=== PATIENT | female | born 1990 | race Caucasian/White ===

== ENCOUNTER 2019-08-25 09:05 | Day surgery (SDC) | payer BC ==
--- NOTE | 2019-08-25 09:25 | EDM.PDOC ---
ED HPI GENERAL MEDICAL PROBLEM - General Chief Complaint: Abdominal Pain Stated Complaint: [facility] Time Seen by Provider: 08/25/19 09:12 Source of Information: Reports: Patient, Family (spouse) History Limitations: Reports: No Limitations - History of Present Illness INITIAL COMMENTS - FREE TEXT/NARRATIVE: 29-year-old female presents to the ED with acute onset of severe right lower quadrant abdominal pain that radiates across her lower abdomen to the left side intermittently. No pain in her back. Patient states that she was watching a basketball game last evening when she started to develop right lower quadrant abdominal pain. Within 10 to 15 minutes the pain became very intense and she was leaning over the toilet at home. She states is almost like something broke inside. Of note the patient is trying to conceive. She is 2 para 0 with 2 previous miscarriages. This. Came approximately a week to 6 8 days early. She started to spot per vagina last evening and continues to spot this morning. Pain was very intense until about midnight and then seemed to ease up until the reoccurred this morning while she was at work. Pain is so intense that she cannot walk. Once again denies pain in her back. Has had no previous abdominal surgeries. Never required a D&C for any of her miscarriages. Onset: Sudden Onset Date: 08/24/19 Onset Time: 20:30 Duration: Hour(s):, Getting Worse Location: Reports: Abdomen (Right lower quadrant of the abdomen rating across to the left side) Quality: Reports: Sharp, Stabbing, Other Severity: Severe (Pain is very sharp and stabbing and colicky at times 9 out of 10) Improves with: Reports: Other (It is improved with fentanyl 50 mcg given IV by paramedics as well as Dilaudid 0.5 mg given by paramedics in route to [place] from [place].) Worsens with: Reports: Movement Context: Denies: Activity, Exercise, Lifting, Sick Contact, Trauma, Other Associated Symptoms: Reports: Loss of Appetite, Nausea/Vomiting (She was sick last evening due to the intensity of the pain). 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, Other (see below) Other Treatments GLOST KILN OPERATOR: fentanyl, dilaudid Lower Abdomen Pain Score (Numeric/FACES): 4 - Related Data Allergies Allergy/AdvReac Type Severity Reaction Status Date / Time No Known Allergies Allergy Verified 08/25/19 09:12 Home Meds: Home Meds Amoxicillin [Amoxil] 875 mg PO Q12HR 08/25/19 [History] Levothyroxine 75 mcg PO ACBREAKFAST 08/25/19 [History] 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: Reports: 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, Spontaneous : 2 Para: 0 (Both previous pregnancies ended in spontaneous miscarriages without need for D&C) Endocrine/Metabolic History: Reports: Hypothyroidism - Past Surgical History HEENT Surgical History: Reports: Oral Surgery Social & Family History - Tobacco Use Smoking Status *Q: Never Smoker - Caffeine Use Caffeine Use: Reports: None - Recreational Drug Use Recreational Drug Use: No - Living Situation & Occupation Living situation: Reports: Occupation: Unemployed ED ROS GENERAL - Review of Systems Review Of Systems: See Below Constitutional: Reports: Weakness, Decreased Appetite. Denies: Fever, Chills, Malaise HEENT: Reports: No Symptoms Respiratory: Reports: No Symptoms Cardiovascular: Reports: No Symptoms Endocrine: Reports: No Symptoms GI/Abdominal: Reports: Abdominal Pain (See history of present illness) : Reports: Other (Bleeding per vagina but she states more spotting not enough to soak a pad since last evening.) Musculoskeletal: Reports: No Symptoms Skin: Reports: No Symptoms Neurological: Reports: No Symptoms Psychiatric: Reports: No Symptoms Hematologic/Lymphatic: Reports: No Symptoms Immunologic: Reports: No Symptoms ED EXAM, GI/ABD - Physical Exam Exam: See Below Exam Limited By: No Limitations General Appearance: Alert, WD/WN, Anxious, Mild Distress, Other (Temperature is 36.3 heart rate is 111 at the bedside respiratory 16 BP 119/83 pulse ox 100% on room air) Eyes: Bilateral: Normal Appearance Throat/Mouth: Normal Inspection (No blepharal pallor), Normal Lips, Normal Teeth , Normal Oropharynx Head: Atraumatic, Normocephalic Neck: Normal Inspection, Supple, Non-Tender, Full Range of Motion. No: Lymphadenopathy (L), Lymphadenopathy (R) Respiratory/Chest: No Respiratory Distress, Lungs Clear, Normal Breath Sounds, No Accessory Muscle Use Cardiovascular: Normal Peripheral Pulses, Regular Rate, Rhythm, No Murmur, No Rub, Tachycardia (Tachycardia at the better side.) GI/Abdominal Exam: Soft, Abnormal Bowel Sounds (All sounds are very quiesced sent in all 4 quadrants.) (Female) Exam: Adnexal Tenderness, Cervix Motion Tenderness, Uterine Tenderness (Mild), Vaginal Bleeding. No: Cervical Dilatation (Very on the right side.), Enlarged Uterus (Both away and towards the right adnexa.), Heart Tones, Products of Conception Back Exam: Normal Inspection, Full Range of Motion, Vertebral Tenderness. No: CVA Tenderness (L), CVA Tenderness (R) Extremities: Normal Inspection, Normal Range of Motion, Non-Tender Neurological: Alert, Oriented, CN II-XII Intact, Normal Cognition Psychiatric: Anxious Skin Exam: Warm, Dry, Intact, No Rash Course - Vital Signs Last Recorded V/S: Last Vital Signs Temp 36.7 C 08/25/19 15:31 Pulse 84 08/25/19 15:31 Resp 14 08/25/19 15:31 BP 116/75 08/25/19 15:31 Pulse Ox 100 08/25/19 15:31 - Orders/Labs/Meds Labs: Laboratory Tests 08/25/19 08/25/19 08/25/19 Range/Units 09:40 09:40 09:40 WBC 12.12 H (3.98-10.04) K/mm3 RBC 3.88 L (3.98-5.22) M/mm3 Hgb 11.4 (11.2-15.7) gm/dl Hct 34.0 L (34.1-44.9) % MCV 87.6 (79.4-94.8) fl MCH 29.4 (25.6-32.2) pg MCHC 33.5 (32.2-35.5) g/dl RDW Std Deviation 39.8 (36.4-46.3) fL Plt Count 522 H (182-369) K/mm3 MPV 8.9 L (9.4-12.3) fl Neut % (Auto) 79.4 H (34.0-71.1) % Lymph % (Auto) 12.5 L (19.3-51.7) % [place] % (Auto) 5.9 (4.7-12.5) % Eos % (Auto) 1.8 (0.7-5.8) Baso % (Auto) 0.2 (0.1-1.2) % Neut # (Auto) 9.64 H (1.56-6.13) K/mm3 Lymph # (Auto) 1.51 (1.18-3.74) K/mm3 [place] # (Auto) 0.71 H (0.24-0.36) K/mm3 Eos # (Auto) 0.22 (0.04-0.36) K/mm3 Baso # (Auto) 0.02 (0.01-0.08) K/mm3 Manual Slide Review Normal smear Sodium 140 (136-145) mEq/L Potassium 3.5 (3.5-5.1) mEq/L Chloride 106 (98-107) mEq/L Carbon Dioxide 18 L (21-32) mEq/L Anion Gap 19.5 H (5-15) BUN 12 (7-18) mg/dL Creatinine 1.0 (0.55-1.02) mg/dL Est Cr Clr Drug Dosing 68.67 mL/min Estimated GFR (MDRD) > 60 (>60) mL/min BUN/Creatinine Ratio 12.0 L (14-18) Glucose 182 H (74-106) mg/dL Calcium 8.9 (8.5-10.1) mg/dL Total Bilirubin 0.6 (0.2-1.0) mg/dL AST 12 L (15-37) U/L ALT 21 (14-59) U/L Alkaline Phosphatase 46 (46-116) U/L Total Protein 7.0 (6.4-8.2) g/dl Albumin 3.5 (3.4-5.0) g/dl Globulin 3.5 gm/dL Albumin/Globulin Ratio 1.0 (1-2) HCG, Qual Positive H (NEGATIVE) HCG, Quant mIU/mL Blood Type Gel Antibody Screen Crossmatch 08/25/19 08/25/19 Range/Units 09:40 10:53 WBC (3.98-10.04) K/mm3 RBC (3.98-5.22) M/mm3 Hgb (11.2-15.7) gm/dl Hct (34.1-44.9) % MCV (79.4-94.8) fl MCH (25.6-32.2) pg MCHC (32.2-35.5) g/dl RDW Std Deviation (36.4-46.3) fL Plt Count (182-369) K/mm3 MPV (9.4-12.3) fl Neut % (Auto) (34.0-71.1) % Lymph % (Auto) (19.3-51.7) % [place] % (Auto) (4.7-12.5) % Eos % (Auto) (0.7-5.8) Baso % (Auto) (0.1-1.2) % Neut # (Auto) (1.56-6.13) K/mm3 Lymph # (Auto) (1.18-3.74) K/mm3 [place] # (Auto) (0.24-0.36) K/mm3 Eos # (Auto) (0.04-0.36) K/mm3 Baso # (Auto) (0.01-0.08) K/mm3 Manual Slide Review Sodium (136-145) mEq/L Potassium (3.5-5.1) mEq/L Chloride (98-107) mEq/L Carbon Dioxide (21-32) mEq/L Anion Gap (5-15) BUN (7-18) mg/dL Creatinine (0.55-1.02) mg/dL Est Cr Clr Drug Dosing mL/min Estimated GFR (MDRD) (>60) mL/min BUN/Creatinine Ratio (14-18) Glucose (74-106) mg/dL Calcium (8.5-10.1) mg/dL Total Bilirubin (0.2-1.0) mg/dL AST (15-37) U/L ALT (14-59) U/L Alkaline Phosphatase (46-116) U/L Total Protein (6.4-8.2) g/dl Albumin (3.4-5.0) g/dl Globulin gm/dL Albumin/Globulin Ratio (1-2) HCG, Qual (NEGATIVE) HCG, Quant 8110.0 mIU/mL Blood Type O POSITIVE Gel Antibody Screen Negative Crossmatch See Detail Meds: Medications Discontinued Medications Generic Name Dose Route Start Last Admin Trade Name Freq PRN Reason Stop Dose Admin Bupivacaine HCl Confirm 08/25/19 12:11 08/25/19 12:53 Marcaine 0.5% Administered 08/25/19 12:12 5 ml Dose Administration 30 ml .ROUTE .STK-MED ONE Cefazolin Sodium Confirm 08/25/19 12:29 Ancef Administered 08/25/19 12:30 Dose 2 gm .ROUTE .STK-MED ONE Dexamethasone Confirm 08/25/19 13:36 Dexamethasone Administered 08/25/19 13:37 Dose 20 mg .ROUTE .STK-MED ONE Fentanyl Confirm 08/25/19 11:49 Sublimaze Administered 08/25/19 11:50 Dose 250 mcg .ROUTE .STK-MED ONE Fentanyl 50 mcg 08/25/19 13:05 Sublimaze IVPUSH 08/25/19 18:00 Q5M PRN Pain Hydromorphone HCl 0.5 mg 08/25/19 13:05 Dilaudid IVPUSH 08/25/19 18:00 Q15M PRN severe pain Dextrose/Sodium Chloride 1,000 mls @ 250 mls/hr 08/25/19 09:30 08/25/19 11:53 Dextrose 5%-Normal Saline IV 999 mls/hr ASDIRECTED JOYCE Infusion Dextrose/Sodium Chloride 1,000 mls @ 999 mls/hr 08/25/19 10:45 Dextrose 5%-Normal Saline IV ASDIRECTED JOYCE Sodium Chloride 250 mls @ 25 mls/hr 08/25/19 11:45 08/25/19 12:17 Normal Saline IV 25 mls/hr ASDIRECTED JOYCE Administration Lidocaine HCl Confirm 08/25/19 11:47 Xylocaine-Mpf 1% Administered 08/25/19 11:48 Dose 4 mls @ as directed .ROUTE .STK-MED ONE Lactated Ringer's Confirm 08/25/19 12:24 Ringers, Lactated Administered 08/25/19 12:25 Dose 1,000 mls @ as directed .ROUTE .STK-MED ONE Lactated Ringer's Confirm 08/25/19 12:55 Ringers, Lactated Administered 08/25/19 12:56 Dose 1,000 mls @ as directed .ROUTE .STK-MED ONE Metoclopramide HCl 7.5 mg 08/25/19 09:33 08/25/19 09:39 Reglan IVPUSH 08/25/19 09:34 7.5 mg ONETIME ONE Administration Midazolam HCl Confirm 08/25/19 11:48 Versed 1 Mg/Ml Administered 08/25/19 11:49 Dose 2 mg .ROUTE .STK-MED ONE Ondansetron HCl 4 mg 08/25/19 13:05 Zofran IVPUSH 08/25/19 18:00 ONETIME PRN Nausea/Vomiting Propofol Confirm 08/25/19 11:47 Diprivan 20 Ml Administered 08/25/19 11:48 Dose 200 mg .ROUTE .STK-MED ONE Rocuronium Vista Confirm 08/25/19 12:20 Zemuron Administered 08/25/19 12:21 Dose 50 mg .ROUTE .STK-MED ONE - Radiology Interpretation Free Text/Narrative:: 29-year-old female presents to the ED with acute onset of severe right lower quadrant abdominal pain about 0830 hrs. last evening. Pain was very intense for about 4 hours and then eased up overnight so she did get a few hours of sleep. Was better this morning when she awoke. She decided to go to work and once again the pain came back while at work. She therefore had to come to the hospital. She started spotting per vagina last evening. She reports this. Would be about a week to 8 days earlier than normal. She is not on any form of control and is trying to conceive. 2 previous pregnancies ended in miscarriages. Pain is very intense in the right lower quadrant and radiates across the suprapubic abdomen to the left lower quadrant. It is no worse with voiding or defecating. - Re-Assessments/Exams Free Text/Narrative Re-Assessment/Exam: 08/25/19 09:33 now the patient did start to vomit. This is likely from narcotics administered by paramedics in route to the hospital. We will give Reglan 7.5 mg IV. 08/25/19 10:11 transvaginal and exam reveals exquisite tenderness in the right adnexa with questionable mass. She will require transvaginal ultrasound. The test is not yet back. 08/25/19 10:37 Labs reveal a slightly male elevated white count of 12.12. Differential shows 80% neutrophils. Hemoglobin 11.4 with hematocrit of 34.0. Platelet count is elevated at 522,000. Sodium 140 with potassium low normal at 3.5. Chloride 106 with a bicarb of 18. Anion gap is markedly elevated at 19.5. BUN is 12 with a creatinine of 1.0. Glucose 182 calcium 8.9 liver function is normal. Jennifer 7.0 with an albumin fraction of 3.5 08/25/19 10:59 hCG test came back positive. I will therefore order a quantitative beta-hCG. Blood type is O positive 08/25/19 11:33 ReSound reveals a very large right-sided ectopic which appears to be within the adnexa. The gestational sac reveals a pole measuring / dating 6 weeks 1 day with heart tones. A large amount of blood in the right adnexa and blood in the pelvis that travels across to the left side. I discussed the case with Dr. Maria Guadalupe Ford who is on-call and she will see the patient in the ED. The plan will be to take her to surgery immediately. The OR will be called back. Will be crossmatched for 2 units of packed cells. 08/25/19: 12:05 Quantitative B-HCG is elevated at 8110. Departure - Departure Time of Disposition: 12:20 Disposition: DC/Tfer to [facility] Condition: Serious Clinical Impression: Ectopic Qualifiers: Location of ectopic : unspecified location Intrauterine status: without intrauterine Qualified Code(s): O00.90 - Unspecified ectopic without intrauterine - Discharge Information *PRESCRIPTION DRUG MONITORING PROGRAM REVIEWED*: Not Applicable *COPY OF PRESCRIPTION DRUG MONITORING REPORT IN PATIENT SHREYAS: Not Applicable Sepsis Event Note - Evaluation Sepsis Screening Result: No Definite Risk - Focused Exam Date Exam was Performed: 08/27/19 Time Exam was Performed: 06:48
[2019-08-25] MEDS ORDERED: Dextrose 5%-0.9% NaCl 1,000 ML IV SCH ×2 (09:30→10:45)
[2019-08-25] MEDS ORDERED: Metoclopramide 10 MG/2 ML SDV IVPUSH ONE (09:33)
[2019-08-25] MEDS ORDERED: Sodium Chloride 0.9% 250 ML IV SCH (11:45)
[2019-08-25] MEDS ORDERED: Lidocaine 1% 4 ML ONE (11:47)
[2019-08-25] MEDS ORDERED: Propofol 200 MG/20 ML SDV ONE (11:47)
[2019-08-25] MEDS ORDERED: Midazolam 1 MG/ML 2 ML SDV ONE (11:48)
[2019-08-25] MEDS ORDERED: fentaNYL 250 MCG/5 ML SDV ONE (11:49)
--- NOTE | 2019-08-25 11:50 | US ---
Pelvic ultrasound: Multiple real-time images were obtained transvaginally as well as transabdominally. Findings: Uterus is retroverted. No intrauterine gestational sac is seen. There is a thick-walled structure containing pole and yolk sac within the right adnexa compatible with ectopic . No free fluid is seen at this time. Impression: 1. Tubal on the right side (ectopic). 2. No free fluid is seen. No intrauterine finding is seen. Diagnostic code #5 This report was dictated in [place] Standard Time
--- NOTE | 2019-08-25 11:53 | PCM.PREANE ---
Preanesthetic Assessment - Procedure Proposed Procedure: laparoscopy for ectopic preg - Anesthesia/Transfusion/Family Hx Anesthesia History: Prior Anesthesia Without Reaction Family History of Anesthesia Reaction: No Transfusion History: No Prior Transfusion(s) - Review of Systems General: Chills Pulmonary: Other (recent uri) Cardiovascular: No Symptoms Gastrointestinal: Abdominal Pain (since last night), Nausea, Vomiting Neurological: No Symptoms Other: Reports: Thyroid Problems, Sinus Problem - Physical Assessment NPO Status Date: 08/25/19 NPO Status Time: 08:45 (water) Vital Signs: Last Vital Signs Temp 97.3 F 08/25/19 09:09 Pulse 111 H 08/25/19 09:09 Resp 16 08/25/19 09:09 BP 119/83 08/25/19 09:09 Pulse Ox 100 08/25/19 09:09 Height: 5 ft 3 in Weight: 88.451 kg ASA Class: 1E Mental Status: Alert & Oriented x3 Airway Class: Mallampati = 2 Dentition: Reports: Normal Dentition Thyro-Mental Finger Breadths: 3 Mouth Opening Finger Breadths: 3 ROM/Head Extension: Full Lungs: Clear to Auscultation, Normal Respiratory Effort Cardiovascular: Regular Rate, Regular Rhythm - Lab Values: Laboratory Last Values WBC 12.12 K/mm3 (3.98-10.04) H 08/25/19 09:40 RBC 3.88 M/mm3 (3.98-5.22) L 08/25/19 09:40 Hgb 11.4 gm/dl (11.2-15.7) 08/25/19 09:40 Hct 34.0 % (34.1-44.9) L 08/25/19 09:40 MCV 87.6 fl (79.4-94.8) 08/25/19 09:40 MCH 29.4 pg (25.6-32.2) 08/25/19 09:40 MCHC 33.5 g/dl (32.2-35.5) 08/25/19 09:40 RDW Std Deviation 39.8 fL (36.4-46.3) 08/25/19 09:40 Plt Count 522 K/mm3 (182-369) H 08/25/19 09:40 MPV 8.9 fl (9.4-12.3) L 08/25/19 09:40 Neut % (Auto) 79.4 % (34.0-71.1) H 08/25/19 09:40 Lymph % (Auto) 12.5 % (19.3-51.7) L 08/25/19 09:40 [place] % (Auto) 5.9 % (4.7-12.5) 08/25/19 09:40 Eos % (Auto) 1.8 (0.7-5.8) 08/25/19 09:40 Baso % (Auto) 0.2 % (0.1-1.2) 08/25/19 09:40 Neut # (Auto) 9.64 K/mm3 (1.56-6.13) H 08/25/19 09:40 Lymph # (Auto) 1.51 K/mm3 (1.18-3.74) 08/25/19 09:40 [place] # (Auto) 0.71 K/mm3 (0.24-0.36) H 08/25/19 09:40 Eos # (Auto) 0.22 K/mm3 (0.04-0.36) 08/25/19 09:40 Baso # (Auto) 0.02 K/mm3 (0.01-0.08) 08/25/19 09:40 Manual Slide Review Normal smear 08/25/19 09:40 Sodium 140 mEq/L (136-145) 08/25/19 09:40 Potassium 3.5 mEq/L (3.5-5.1) 08/25/19 09:40 Chloride 106 mEq/L (98-107) 08/25/19 09:40 Carbon Dioxide 18 mEq/L (21-32) L 08/25/19 09:40 Anion Gap 19.5 (5-15) H 08/25/19 09:40 BUN 12 mg/dL (7-18) 08/25/19 09:40 Creatinine 1.0 mg/dL (0.55-1.02) 08/25/19 09:40 Est Cr Clr Drug Dosing 68.67 mL/min 08/25/19 09:40 Estimated GFR (MDRD) > 60 mL/min (>60) 08/25/19 09:40 BUN/Creatinine Ratio 12.0 (14-18) L 08/25/19 09:40 Glucose 182 mg/dL (74-106) H 08/25/19 09:40 Calcium 8.9 mg/dL (8.5-10.1) 08/25/19 09:40 Total Bilirubin 0.6 mg/dL (0.2-1.0) 08/25/19 09:40 AST 12 U/L (15-37) L 08/25/19 09:40 ALT 21 U/L (14-59) 08/25/19 09:40 Alkaline Phosphatase 46 U/L (46-116) 08/25/19 09:40 Total Protein 7.0 g/dl (6.4-8.2) 08/25/19 09:40 Albumin 3.5 g/dl (3.4-5.0) 08/25/19 09:40 Globulin 3.5 gm/dL 08/25/19 09:40 Albumin/Globulin Ratio 1.0 (1-2) 08/25/19 09:40 HCG, Qual Positive (NEGATIVE) H 08/25/19 09:40 Blood Type O POSITIVE 08/25/19 09:40 Gel Antibody Screen Negative 08/25/19 09:40 Crossmatch See Detail 08/25/19 09:40 - Allergies Allergies/Adverse Reactions: Allergies Allergy/AdvReac Type Severity Reaction Status Date / Time No Known Allergies Allergy Verified 08/25/19 09:12 - Blood Blood Available: No - Acknowledgements Anesthesia Type Planned: General Anesthesia Pt an Appropriate Candidate for the Planned Anesthesia: Yes Alternatives and Risks of Anesthesia Discussed w Pt/Guardian: Yes Pt/Guardian Understands and Agrees with Anesthesia Plan: Yes PreAnesthesia Questionnaire HEENT History: Reports: Other (See Below) (recent sinus infection) Cardiovascular History: Reports: None Respiratory History: Reports: None Gastrointestinal History: Reports: None 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: Reports: 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, Spontaneous : 3 Para: 0 Endocrine/Metabolic History: Reports: Hypothyroidism - Past Surgical History HEENT Surgical History: Reports: Oral Surgery - SUBSTANCE USE Smoking Status *Q: Never Smoker Tobacco Use Within Last Twelve Months: No Second Hand Smoke Exposure: No Days Per Week of Alcohol Use: 0 Recreational Drug Use History: No - HOME MEDS Home Medications: Home Meds Amoxicillin [Amoxil] 875 mg PO Q12HR 08/25/19 [History] Levothyroxine 75 mcg PO ACBREAKFAST 08/25/19 [History] - CURRENT (IN HOUSE) MEDS Current Meds: Current Medications Dextrose/Sodium Chloride (Dextrose 5%-Normal Saline) 1,000 mls @ 250 mls/hr IV ASDIRECTED JOYCE Last Admin: 08/25/19 09:38 Dose: 250 mls/hr Dextrose/Sodium Chloride (Dextrose 5%-Normal Saline) 1,000 mls @ 999 mls/hr IV ASDIRECTED JOYCE Sodium Chloride (Normal Saline) 250 mls @ 25 mls/hr IV ASDIRECTED JOYCE Discontinued Medications Metoclopramide HCl (Reglan) 7.5 mg IVPUSH ONETIME ONE Stop: 08/25/19 09:34 Last Admin: 08/25/19 09:39 Dose: 7.5 mg
[2019-08-25] MEDS ORDERED: Bupivacaine 0.5% 30 ML SDV ONE (12:11)
--- NOTE | 2019-08-25 12:15 | PCM.HP.2 ---
H&P History of Present Illness - General Date of Service: 08/25/19 Admit Problem/Dx: Admission Diagnosis/Problem Admission Diagnosis/Problem Ectopic - History of Present Illness Initial Comments - Free Text/Narative: 29 year presented to the ER with significant pelvic pain that started today. Was not aware she is . Ultrasound here shows a right ectopic with cardiac motion. 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: 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, Spontaneous Endocrine/Metabolic History: Reports: Hypothyroidism - Past Surgical History HEENT Surgical History: Reports: Oral Surgery Social & Family History - Tobacco Use Smoking Status *Q: Never Smoker Second Hand Smoke Exposure: No - Caffeine Use Caffeine Use: Reports: None - Alcohol Use Days Per Week of Alcohol Use: 0 - Recreational Drug Use Recreational Drug Use: No - Living Situation & Occupation Living situation: Reports: Occupation: Unemployed H&P Review of Systems - Review of Systems: Review Of Systems: See Below General: Denies: Fever, Chills, Fatigue Pulmonary: Denies: Shortness of Breath Cardiovascular: Denies: Chest Pain, Palpitations, Lightheadedness Genitourinary: Reports: Other (slight spotting vaginally). Denies: Dysuria Musculoskeletal: Reports: No Symptoms Skin: Reports: No Symptoms Psychiatric: Reports: No Symptoms Neurological: Reports: No Symptoms Hematologic/Lymphatic: Reports: No Symptoms Immunologic: Reports: No Symptoms Exam - Exam Exam: See Below - Vital Signs Vital Signs: Last Vital Signs Temp 36.3 C 08/25/19 09:09 Pulse 111 H 08/25/19 09:09 Resp 16 08/25/19 09:09 BP 119/83 08/25/19 09:09 Pulse Ox 100 08/25/19 09:09 Weight: 88.451 kg - Exam General: Alert, Oriented, 4 HEENT: PERRLA, Hearing Intact, Mucosa Moist & Sentinel, Nares Patent, Normal Nasal Septum, Posterior Pharynx Clear, Conjunctiva Clear, EOMI, EACs Clear, TMs Clear Neck: Supple, Trachea Midline, 2 Lungs: Clear to Auscultation, Normal Respiratory Effort Cardiovascular: Regular Rate, Regular Rhythm GI/Abdominal Exam: Normal Bowel Sounds, Soft, Guarding, Tender Back Exam: Normal Inspection, Full Range of Motion, NT Extremities: Normal Inspection, Normal Range of Motion, Non-Tender, No Pedal Edema, Normal Capillary Refill Skin: Warm, Dry, Intact Neurological: Cranial Nerves Intact, Reflexes Equal Bilateral Neuro Extensive - Mental Status: Alert, Oriented x3, Normal Mood/Affect, Normal Cognition Neuro Extensive - Motor, Sensory, Reflexes: CN II-XII Intact, Normal Gait, Normal Reflexes Psychiatric: Alert, Normal Affect, Normal Mood - Patient Data Lab Results Last 24 hrs: Laboratory Results - last 24 hr 08/25/19 08/25/19 08/25/19 Range/Units 09:40 09:40 09:40 WBC 12.12 H (3.98-10.04) K/mm3 RBC 3.88 L (3.98-5.22) M/mm3 Hgb 11.4 (11.2-15.7) gm/dl Hct 34.0 L (34.1-44.9) % MCV 87.6 (79.4-94.8) fl MCH 29.4 (25.6-32.2) pg MCHC 33.5 (32.2-35.5) g/dl RDW Std Deviation 39.8 (36.4-46.3) fL Plt Count 522 H (182-369) K/mm3 MPV 8.9 L (9.4-12.3) fl Neut % (Auto) 79.4 H (34.0-71.1) % Lymph % (Auto) 12.5 L (19.3-51.7) % [place] % (Auto) 5.9 (4.7-12.5) % Eos % (Auto) 1.8 (0.7-5.8) Baso % (Auto) 0.2 (0.1-1.2) % Neut # (Auto) 9.64 H (1.56-6.13) K/mm3 Lymph # (Auto) 1.51 (1.18-3.74) K/mm3 [place] # (Auto) 0.71 H (0.24-0.36) K/mm3 Eos # (Auto) 0.22 (0.04-0.36) K/mm3 Baso # (Auto) 0.02 (0.01-0.08) K/mm3 Manual Slide Review Normal smear Sodium 140 (136-145) mEq/L Potassium 3.5 (3.5-5.1) mEq/L Chloride 106 (98-107) mEq/L Carbon Dioxide 18 L (21-32) mEq/L Anion Gap 19.5 H (5-15) BUN 12 (7-18) mg/dL Creatinine 1.0 (0.55-1.02) mg/dL Est Cr Clr Drug Dosing 68.67 mL/min Estimated GFR (MDRD) > 60 (>60) mL/min BUN/Creatinine Ratio 12.0 L (14-18) Glucose 182 H (74-106) mg/dL Calcium 8.9 (8.5-10.1) mg/dL Total Bilirubin 0.6 (0.2-1.0) mg/dL AST 12 L (15-37) U/L ALT 21 (14-59) U/L Alkaline Phosphatase 46 (46-116) U/L Total Protein 7.0 (6.4-8.2) g/dl Albumin 3.5 (3.4-5.0) g/dl Globulin 3.5 gm/dL Albumin/Globulin Ratio 1.0 (1-2) HCG, Qual Positive H (NEGATIVE) HCG, Quant mIU/mL Blood Type Gel Antibody Screen Crossmatch 08/25/19 08/25/19 Range/Units 09:40 10:53 WBC (3.98-10.04) K/mm3 RBC (3.98-5.22) M/mm3 Hgb (11.2-15.7) gm/dl Hct (34.1-44.9) % MCV (79.4-94.8) fl MCH (25.6-32.2) pg MCHC (32.2-35.5) g/dl RDW Std Deviation (36.4-46.3) fL Plt Count (182-369) K/mm3 MPV (9.4-12.3) fl Neut % (Auto) (34.0-71.1) % Lymph % (Auto) (19.3-51.7) % [place] % (Auto) (4.7-12.5) % Eos % (Auto) (0.7-5.8) Baso % (Auto) (0.1-1.2) % Neut # (Auto) (1.56-6.13) K/mm3 Lymph # (Auto) (1.18-3.74) K/mm3 Moh[place] # (Auto) (0.24-0.36) K/mm3 Eos # (Auto) (0.04-0.36) K/mm3 Baso # (Auto) (0.01-0.08) K/mm3 Manual Slide Review Sodium (136-145) mEq/L Potassium (3.5-5.1) mEq/L Chloride (98-107) mEq/L Carbon Dioxide (21-32) mEq/L Anion Gap (5-15) BUN (7-18) mg/dL Creatinine (0.55-1.02) mg/dL Est Cr Clr Drug Dosing mL/min Estimated GFR (MDRD) (>60) mL/min BUN/Creatinine Ratio (14-18) Glucose (74-106) mg/dL Calcium (8.5-10.1) mg/dL Total Bilirubin (0.2-1.0) mg/dL AST (15-37) U/L ALT (14-59) U/L Alkaline Phosphatase (46-116) U/L Total Protein (6.4-8.2) g/dl Albumin (3.4-5.0) g/dl Globulin gm/dL Albumin/Globulin Ratio (1-2) HCG, Qual (NEGATIVE) HCG, Quant 8110.0 mIU/mL Blood Type O POSITIVE Gel Antibody Screen Negative Crossmatch See Detail Result Diagrams: 08/25/19 09:40 08/25/19 09:40 Sepsis Event Note - Evaluation Sepsis Screening Result: No Definite Risk - Focused Exam Vital Signs: Vital Signs Temp Pulse Resp BP Pulse Ox 08/25/19 09:09 36.3 C 111 H 16 119/83 100 Date Exam was Performed: 08/25/19 Time Exam was Performed: 12:12 Problem List Initiated/Reviewed/Updated: Yes Orders Last 24hrs: Active Orders 24 hr Category Date Time Status Admission Status [Patient Status] [ADT] Routine ADT 08/25/19 11:52 Active PACKED CELLS [RED BLOOD CELLS LP] [BBK] Stat Lab 08/25/19 09:40 Results TYPE AND SCREEN [BBK] Stat Lab 08/25/19 09:40 Results URINALYSIS W/MICROSCOPIC [UA W/MICROSCOPIC] [URIN] Stat Lab 08/25/19 09:24 Ordered Dextrose 5%-0.9% NaCl [Dextrose 5%-Normal Saline] 1,000 Med 08/25/19 09:30 Active ml IV ASDIRECTED Dextrose 5%-0.9% NaCl [Dextrose 5%-Normal Saline] 1,000 Med 08/25/19 10:45 Active ml IV ASDIRECTED Sodium Chloride 0.9% [Normal Saline] 250 ml Med 08/25/19 11:45 Active IV ASDIRECTED Schedule Procedure [COMM] Stat Ot 08/25/19 11:52 Ordered Transfuse RBC [Transfuse Red Blood Cells] [COMM] Stat Ot 08/25/19 11:33 Ordered Medication Orders Dextrose/Sodium Chloride (Dextrose 5%-Normal Saline) 1,000 mls @ 250 mls/hr IV ASDIRECTED [facility] Last Infusion: 08/25/19 11:53 Dose: 999 mls/hr Admin: 08/25/19 09:38 Dose: 250 mls/hr Dextrose/Sodium Chloride (Dextrose 5%-Normal Saline) 1,000 mls @ 999 mls/hr IV ASDIRECTED [facility] Sodium Chloride (Normal Saline) 250 mls @ 25 mls/hr IV ASDIRECTED JOYCE Assessment/Plan Comment:: 29 year old with ectopic and hemoperitoneum. Stable currently. Risks, benefits and alternatives discussed. Plan to proceed with laparoscopic salpingectomy -likely right but discussed occasionally difficulty to tell side on ultrasound. Possible laparotomy.
[2019-08-25] MEDS ORDERED: Rocuronium 50 MG/5 ML Vial ONE (12:20)
[2019-08-25] MEDS ORDERED: Lactated Ringers 1,000 ML ONE ×2 (12:24→12:55)
[2019-08-25] MEDS ORDERED: ceFAZolin 1 GM Vial ONE (12:29)
[2019-08-25] MEDS ORDERED: Ondansetron 4 MG/2 ML SDV IVPUSH PRN (13:05)
[2019-08-25] MEDS ORDERED: HYDROmorphone 0.5 MG/0.5 ML Syringe IVPUSH PRN (13:05)
[2019-08-25] MEDS ORDERED: fentaNYL 100 MCG/2 ML SDV IVPUSH PRN (13:05)
[2019-08-25] MEDS ORDERED: Dexamethasone 4 MG/ML 5 ML MDV ONE (13:36)
--- NOTE | 2019-08-25 13:59 | PCM.POSTAN ---
POST ANESTHESIA ASSESSMENT - MENTAL STATUS Mental Status: Alert, Oriented - VITAL SIGNS Vital Signs: Last Vital Signs Temp 36.3 C 08/25/19 09:09 Pulse 67 08/25/19 12:26 Resp 13 08/25/19 12:26 BP 113/76 08/25/19 12:26 Pulse Ox 98 08/25/19 12:26 - RESPIRATORY Respiratory Status: Respiratory Rate WNL, Airway Patent, O2 Saturation Stable - CARDIOVASCULAR CV Status: Pulse Rate WNL, Blood Pressure Stable - GASTROINTESTINAL GI Status: No Symptoms - PAIN Pain Score: 0 - POST OP HYDRATION Hydration Status: Adequate & Stable
--- NOTE | 2019-08-25 14:34 | PCM.OPNOTE ---
- General Post-Op/Procedure Note Date of Surgery/Procedure: 08/25/19 Operative Procedure(s): laparoscopic right salpingectomy, right ovarian cyst drainage, left adhesiolysis Findings: Large right ectopic, hemoperitoneum, left tubal adhesions Pre Op Diagnosis: right ectopic Post-Op Diagnosis: Same Anesthesia Technique: General ET Tube Primary Surgeon: Maria Guadalupe Matthews Anesthesia Provider: Noni Lui Pathology: right fallopian tube Fluid Replacement, Intraop: 1,500 Output, Urine Amount: 125 EBL in mLs: 20 Complications: None Condition: Good Free Text/Narrative:: Intake & Output 08/24/19 08/25/19 08/25/19 22:59 06:59 14:59 Output Total 125 Balance -125 The patient was taken to the Operating Room where general anesthesia was induced without complication. The patient was placed in dorsal lithotomy with Jose Alfredo Stirrups. The patient was then prepped and draped in the usual sterile fashion. A sterile bivalve speculum was placed into the vagina and the anterior lip of the cervix was grasped with a single tooth tenaculum. A Hulka was placed and then slipped off cervix so a sponge stick then placed. The bladder was drained via placement of a hoff. Attention was then turned to the patients abdomen where a Veress needle was inserted into the abdomen at the umbilicus while tenting the abdominal wall. Intraabdominal placement was confirmed with a drop test using a saline filled syringe and low intraabdominal pressure on low flow. A vertical infraumbilical incision was made in the umbilical fold and the 5 mm blunt trocar was inserted with the 5 mm laparoscope inserted through the trocar for direct visualization of abdominal entry through the clear view lens. Once intraabdominal placement was confirmed, the blunt obturator was removed and the laparoscope was inserted and exam of the patient's abdomen revealed the findings detailed above. Significant clot visualized. The patient was placed in Trendelenburg position and the uterus was manipulated to reveal the pelvic findings detailed above as well. Attention was turned to placement of the accessory ports. Both placed on the left. First port was placed approximately 10 cm lateral to the first incision. A 5 mm skin incision was made in the left lower quadrant and a 5 mm trocar was inserted into the abdomen under direct visualization with care to avoid the abdominal wall vasculature. A second port was placed through a 10 mm skin incision a hand breath below the first. A 10 mm trocar was inserted into the abdomen under direct visualization with care to avoid the abdominal wall vasculature. Blunt graspers and probes were used to further examine the pelvis by sweeping bowel away from the dissection field and elevating the adnexal structures. Suction fixture maker used to evacuate clot from pelvis. Ectopic visualized on the right The right Fallopian tube was elevated with a blunt grasper. The left mesosalpinx was grasped with the Ligasure device and doubly burned and then transected under the ectopic. The Ligasure was then used to cauterize and transect from the fimbriated end of the fallopian tube to the uterine cornua in a sequential fashion. Once the right fallopian tube was free, it was placed in the anterior cul de sac. 3 cm ovarian cyst appeared simple. Drained without difficulty. No bleeding. Small amount of clear fluid noted. Pelvis inspected. Small adhesions visualized from left tube to bowel. Taken down with ligasure. Endocatch bag then passed through 10 mm port, tube with ectopic removed easily through the 11 mm port in endocatch bag. N Inspection of the pelvis confirmed hemostasis of all dissection beds. Port closure device passed through 11 mm site after trocar removed. Fascia closed. Lateral 5 mm then removed under visualization. The umbilical trocar was removed and lastly the camera was removed from the abdomen under direct visualization to confirm no herniation into the port site. 0.25% Marcaine was injected into the subcutaneous tissue of all skin incisions for local anesthesia. The skin incisions were re-approximated with 4-0 Monocryl in a running subcuticular fashion and sealed with Dermabond. The patient was awakened and taken to the Recovery Room in stable condition.
--- NOTE | 2019-08-25 15:05 | PCM48HPAN ---
Post Anesthesia Note - EVALUATION WITHIN 48HRS OF ANESTHETIC Vital Signs in Normal Range: Yes Patient Participated in Evaluation: Yes Respiratory Function Stable: Yes Airway Patent: Yes Cardiovascular Function Stable: Yes Hydration Status Stable: Yes Pain Control Satisfactory: Yes Nausea and Vomiting Control Satisfactory: Yes Mental Status Recovered: Yes (rests.) Vital Signs: Last Vital Signs Temp 98.6 F 08/25/19 14:50 Pulse 77 08/25/19 14:50 Resp 14 08/25/19 14:50 BP 119/77 08/25/19 14:50 Pulse Ox 100 08/25/19 14:50
== END 2019-08-25 15:40 | disposition home or self-care (01) ==
LOC: JD.ED 09:05 → JD.SDS 11:59
PROVIDERS: ATTEND Obstetrics & Gynecology
DX: O00.101 Right tubal pregnancy without intrauterine pregnancy (principal); N83.201 Unspecified ovarian cyst, right side; E03.9 Hypothyroidism, unspecified; K66.1 Hemoperitoneum; Z79.899 Other long term (current) drug therapy
CPT/HCPCS: 36415; 59151; 76830; 80053; 84702; 84703; 85025; 86850; 86900; 86901; 86922; 96361; 96374; 99285; J0690; J1100; J2001; J2250; J2704; J2765; J3010; J3490; J7042; J7050; J7120; 00840